=== PATIENT | male | born 2005 | race African-American/Black ===

== ENCOUNTER 2024-11-20 15:50 | Emergency (ER) | payer SELFPAY ==
--- OUTSIDE RECORDS SUMMARY | 2024-11-20 15:53 | XMS REPORT | Continuity of Care Document ---
Author Name Unknown Address [address] [place] [address] [facility] thconnect Address [address] [place] [address] Care Team Providers Care Scaffolding Helper Name Role Phone Ray Beltran Primary Care Physician [phone], Ad[facility] Attending Clinician Unavailable Stewart Beltranh Attending Clinician [phone] STEWART BELTRANH Attending Clinician Unavailable Doctor Unassigned, [place] Attending Clinician U navailable Provider, [facility] Attending Clinician Unavailable Only, Ang Db Test Attending Clinician Unavailabl e Romulo RIG SITE ENGINEERTrice Dodd Attending Clinician TRICE SEBASTIAN Attending Clinician Unavailabl e Nurse, Adc Pob Immunization Attending Clinician Unavailable Mynor Paige DO Attending Clinician [phone] MYNOR PAIGE Attending Clinician Unavail able Lesly Mcgee RN Attending Clinician Unavaila ble UNKNOWN, ATTENDING Attending Clinician Unavailab le Unknown, Attending Attending Clinician Unavailab li Still RN, Cecilia Attending Clinician Unavailable PAN ESCAMILLA Attending Clinician Unavailable Payers Payer Name Policy Type Policy Number Effective Date Expirati on Date Source [facility] P [id number] Allergies, Adverse Reactions, Alerts Allergy Name Allergy Type Status Severity Reaction(s) Onset Date Inactive Date Treating Clinician Comments Source NO KNOWN ALLERGIE S Drug Class Active [facility] Social History Social Habit Start Date Stop Date Quantity Comments Source Sexual orientation U [facility] Exposure to SARS-CoV-2 (event) 2022-04-26 00:00:00 2022-05-06 14:51:00 Not sure [facility] Sex Assigned At 2005 00:00:00 2005 00:00:00 [facility] Smoking Status Start Date Stop Date Source Tobacco smoking consumption unknown [facility] Medications Ordered Medication Name Filled Medication Name Start Date Stop Date Current Medication? Ordering Clinician Indication Dosage Frequency Signature (SIG) Comments Components Source No known medications 07-13 10:40: 13 No No known medication s [facility] Immunizations Ordered Immunization Name Filled Immunization Name Date Status Comments Source SARS-COV-2 COVID-19 PFIZER VACCINE 2021-10-16 00:00:00 Completed [facility] SARS-COV-2 COVID-19 PFIZER VACCINE 2021-10-16 00:00:00 Completed [facility] SARS-COV-2 COVID-19 PFIZER VACCINE 2021-10-16 00:00:00 Completed [facility] SARS-COV-2 COVID-19 PFIZER VACCINE 2021-10-16 00:00:00 Completed [facility] SARS-COV-2 COVID-19 PFIZER VACCINE Unknown Completed [facility] SARS-COV-2 COVID-19 PFIZER VACCINE Unknown Completed [facility] Procedures Procedure Date / Time Performed Performing Clinicia n Source URINALYSIS 2023-12-10 15:30:00 [facility] PHYSICIAN ORDERS 2023-12-10 06:01:00 Doctor Unas signed, Big [place] [facility] CONSENT/REFUSAL FOR DIAGNOSIS AND TREATMENT 2022-05-06 19:52:07 Doctor Unassigned, [place] [facility] SARS-COV-2 COVID-19 VACCINE,0.3ML,IM (PFIZER) 2021-10-16 16:44:19 Doctor Unassigned, [place] [facility] Encounters Start Date/Time End Date/Time Encounter Type Admission Type Attending [facility] Care Facility Care Department Encounter ID Source 2022-07-24 09:25:12 Outpatient [facility] [id number] [facility] 2023-12-10 10:45:00 2023-12-10 12:12:[address] Clerk Visit 2, [facility] 1.84.114 350.1.13.10 4.2.7.2.686 [id number] [facility] 2023-12-10 10:45:00 2023-12-10 10:45:00 [id number] 2023-12-10 00:00:00 2023-12-10 00:00:00 Orders Only Doctor Unassigned, Big Arm [facility] [id number] 350.1.13.10 4.2.7.2.686 [id number] [facility] 2022-05-07 00:00:00 2022-05-07 00:00:00 Letter (Out) Provider, Madi P[facility]rez [facility] 1.84.114 350.1.13.10 4.2.7.2.686 [id number] [facility] 2022-05-06 15:00:00 2022-05-06 15:15:00 Laboratory Only Only, Ang Db Test Romulo, [facility] 1.84.114 350.1.13.10 4.2.7.2.686 [id number] [facility] 2022-05-06 15:00:00 2022-05-06 15:00:00 Outpatient R ROMULO [facility] [id number] [facility] 2022-05-06 00:00:00 2022-05-06 00:00:00 Orders Only Doctor Unassigned, Big Arm [facility] [id number] 350.1.13.10 4.2.7.2.686 [id number] [facility] 2021-10-16 10:30:00 2021-10-16 10:30:00 Imm/Inj Visit Nurse, Abdirizak Faria Immunizatio Mynor Mcdermott [facility] 1..840.114 350.1.13.10 4.2.7.2.686 [id number] [facility] 2021-10-16 10:30:00 2021-10-16 10:29:01 Outpatient R MYNOR PAIGE [facility] [id number] [facility] 2021-07-14 00:00:00 2021-07-14 00:00:00 Telephone Lesly Mcgee [facility] [id number] 350.1.13.10 4.2.7.2.686 [id number] [facility] 2021-07-13 11:00:00 2021-07-13 11:00:00 Outpatient R UNKNOWN, ATTENDING [facility] [id number] [facility] 2021-07-13 10:37:35 2021-07-13 10:52:35 Laboratory Only Only, Ang Db Test Unknown, Attending [facility] MananJimboTracey riley [facility] 1..840.114 350.1.13.10 4.2.7.2.686 [id number] [facility] 2021-07-05 00:00:00 2021-07-05 00:00:00 Telephone Cecilia Still [facility] 1.840.114 350.1.13.10 4.2.7.2.686 [id number] [facility] 2021-07-04 19:25:00 2021-07-04 19:25:00 Outpatient R UNKNOWN, ATTENDING [facility] [id number] [facility] 2021-07-04 18:57:47 2021-07-04 19:02:22 Laboratory Only Only, Ang Db Test Unknown, Attending [facility] Vilma Hinkle?Tracey riley [facility] 1.840.114 350.1.13.10 4.2.7.2.686 [id number] [facility] 2021-07-04 00:00:00 2021-07-04 00:00:00 Letter (Out) Doctor Unassigned, Big Arm [facility] 1..840.114 350.1.13.10 4.2.7.2.686 [id number] [facility] 2021-02-01 08:20:00 2021-02-01 08:20:00 Outpatient PAN GUPTA [facility] [id number] [facility] 2020-02-22 14:15:00 2020-02-22 14:15:00 Outpatient RAY ANTON [facility] [id number] [place] [facility]
[2024-11-20] MEDS ORDERED: HYDROCODONE/APAP 5/325 MG TAB ONE (16:55)
[2024-11-20] MEDS ORDERED: dexAMETHasone 10 MG/ML VIAL ONE (16:55)
[2024-11-20] MEDS ORDERED: KETOROLAC 30 MG/ML INJ ONE (16:55)
--- NOTE | 2024-11-20 17:18 | ER ---
Nurse's Notes [facility] Name: Ameya Campa Age: 19 yrs Sex: Male : 2005 Arrival Date: 11/20/2024 Time: 15:50 Bed 12 Private MD: Diagnosis: Strain of muscle and tendon of back wall of thorax Presentation: 11/20 16:27 Chief complaint: Patient states: works at [employer] and was lifting some bags, ko1 felt something pop in my back and it hurts now. Coronavirus screen: At this time, the client does not indicate any symptoms associated with coronavirus-19. Ebola Screen: No symptoms or risks identified at this time. Initial Sepsis Screen: Does the patient meet any 2 criteria? No. Patient's initial sepsis screen is negative. Does the patient have a suspected source of infection? No. Patient's initial sepsis screen is negative. Risk Assessment: Do you want to hurt yourself or someone else? Patient reports no desire to harm self or others. Onset of symptoms was November 20, 2024. 16:27 Method Of Arrival: Ambulatory ko1 16:27 Acuity: SITA 4 ko1 Triage Assessment: 16:31 General: Appears in no apparent distress. Behavior is calm, cooperative, appropriate ko1 for age. Pain: Complains of pain in left low back and left mid back. Musculoskeletal: Circulation, motion, and sensation intact. Range of motion: intact in all extremities. Historical: - Allergies: 16:31 No Known Allergies; ko1 - Home Meds: 16:31 None [Active]; ko1 - PMHx: 16:31 None; ko1 - PSHx: 16:31 None; ko1 - Immunization history:: Adult Immunizations up to date. - Infectious Disease History:: Denies. - Social history:: Smoking status: Patient denies any tobacco usage or history of. Screenin:05 [facility] ED Fall Risk Assessment (Adult) History of falling in the last 3 months, hb including since admission No falls in past 3 months (0 pts) Confusion or Disorientation No (0 pts) Intoxicated or Sedated No (0 pts) Impaired Gait No (0 pts) Mobility Assist Device Used No (0 pt) Altered Elimination No (0 pt) Score/Fall Risk Level 0 - 2 = Low Risk Oriented to surroundings, Maintained a safe environment, Educated pt \T\ family on fall prevention, incl call for assistance when getting out of bed. Abuse screen: Denies threats or abuse. Denies injuries from another. Nutritional screening: No deficits noted. Tuberculosis screening: No symptoms or risk factors identified. Assessment: 17:05 General: Appears in no apparent distress. Behavior is calm, cooperative. Pain: Pain hb currently is 8 out of 10 on a pain scale. Neuro: Level of Consciousness is awake, alert, obeys commands, Oriented to person, place, time, situation. Cardiovascular: Patient's skin is warm and dry. Respiratory: Respiratory effort is even, unlabored, Respiratory pattern is regular, symmetrical. GI: No signs and/or symptoms were reported involving the gastrointestinal system. : No signs and/or symptoms were reported regarding the genitourinary system. EENT: No signs and/or symptoms were reported regarding the EENT system. Derm: Skin is pink, warm \T\ dry. Musculoskeletal: Reports back pain 8/10. 17:29 Reassessment: Patient appears in no apparent distress at this time. Patient and/or hb family updated on plan of care and expected duration. Pain level reassessed. Patient is alert, oriented x 3, equal unlabored respirations, skin warm/dry/pink. Vital Signs: 16:27 BP 110 / 80; Pulse 82; Resp 16; Temp 97; Pulse Ox 100% ; ko1 ED Course: 15:52 Patient arrived in ED. mr 15:54 Dewey Nena, [facility] kb 15:54 Hieu Logan MD is Attending Physician. kb 16:31 Triage completed. ko1 16:31 Arm band placed on right wrist. Patient placed in an exam room, on a stretcher, Patient ko1 notified of wait time. 16:48 Bri Tovar, RN is Primary Nurse. hb 17:05 Patient has correct armband on for positive identification. Provided Education on: hb medications, use of call light . 17:05 No provider procedures requiring assistance completed. Patient did not have IV access hb during this emergency room visit. Administered Medications: 17:03 Drug: Dexamethasone IM 10 mg IM once Route: IM; Site: right deltoid; hb 17:25 Follow up: Response: No adverse reaction hb 17:04 Drug: Ketorolac IM 30 mg IM once Route: IM; Site: left deltoid; hb 17:25 Follow up: Response: No adverse reaction hb 17:04 Drug: HYDROcodone-acetaminophen PO 5 mg-325 mg 1 tabs PO once Route: PO; hb 17:25 Follow up: Response: No adverse reaction hb Medication: 17:05 VIS not applicable for this client. hb Outcome: 17:17 Discharge ordered by . favian 17:29 Discharged to home ambulatory, with family, hb 17:29 Condition: stable 17:29 Discharge instructions given to patient, family, Instructed on discharge instructions, follow up and referral plans. medication usage, Demonstrated understanding of instructions, follow-up care, medications, Prescriptions given X 2, 17:29 Patient left the ED. hb Signatures: Nena Palomo, THUAN-C CREDENTIALING SPECIALIST-Sravanthi Tristan [facility] mr Bri Tovar, RN RN hb Daisha Wood, MARISELA RN ko1
--- NOTE | 2024-11-20 17:18 | EDPHYS ---
Physician Documentation [facility] Name: Ameya Campa Age: 19 yrs Sex: Male : 2005 Arrival Date: 11/20/2024 Time: 15:50 Bed 12 Private MD: ED Physician Hieu Logan HPI: 11/20 17:15 This 19 yrs old Black Male presents to ER via Ambulatory with complaints of Back Pain. kb 17:15 Pt is a 19 year old male who presents for pain to left side of middle back that started kb after lifting a heavy bag of feed at work. Pain aggravated by movement and palpation. . Historical: - Allergies: 16:31 No Known Allergies; ko1 - Home Meds: 16:31 None [Active]; ko1 - PMHx: 16:31 None; ko1 - PSHx: 16:31 None; ko1 - Immunization history:: Adult Immunizations up to date. - Infectious Disease History:: Denies. - Social history:: Smoking status: Patient denies any tobacco usage or history of. ROS: 16:59 Constitutional: As per HPI kb Exam: 16:59 Constitutional: This is a well developed, well nourished patient who is awake, alert, kb and in no acute distress. Head/Face: Normocephalic, atraumatic. ENT: Moist Mucous membranes Cardiovascular: Regular rate Respiratory: Respirations even and unlabored. No increased work of breathing. Talking in full sentences Skin: Warm, dry with normal turgor. Normal color. MS/ Extremity: Pulses equal, no cyanosis. Neurovascular intact. Full, normal range of motion. Neuro: Awake and alert, GCS 15, oriented to person, place, time, and situation. 16:59 Back: pain, that is moderate, of the left subscapular area and left mid back, ROM is painful, normal spinal alignment noted, no vertebral tenderness, Vital Signs: 16:27 BP 110 / 80; Pulse 82; Resp 16; Temp 97; Pulse Ox 100% ; ko1 MDM: 15:54 Medical Screening Exam initiated kb 17:02 Differential diagnosis: muscle strain, fracture. Data reviewed: vital signs, nurses kb notes. Test considered but Not performed: X-ray: xray considered but pt does not have any bony tenderness. Counseling: I had a detailed discussion with the patient and/or guardian regarding the historical points, exam findings, and any diagnostic results supporting the discharge/admit diagnosis, the need for outpatient follow up, a family practitioner, to return to the emergency department if symptoms worsen or persist or if there are any questions or concerns that arise at home. Administered Medications: 17:03 Drug: Dexamethasone IM 10 mg IM once Route: IM; Site: right deltoid; hb 17:25 Follow up: Response: No adverse reaction hb 17:04 Drug: Ketorolac IM 30 mg IM once Route: IM; Site: left deltoid; hb 17:25 Follow up: Response: No adverse reaction hb 17:04 Drug: HYDROcodone-acetaminophen PO 5 mg-325 mg 1 tabs PO once Route: PO; hb 17:25 Follow up: Response: No adverse reaction hb Disposition: 18:06 Co-signature as Attending Physician, Hieu Logan MD I reviewed the patient's care rt provided by the Advanced Practice Provider and agree with the diagnosis and treatment plan. Disposition Summary: 11/20/24 17:17 Discharge Ordered Notes: Location: Home kb Condition: Stable kb Diagnosis - Strain of muscle and tendon of back wall of thorax kb Followup: kb - With: Emergency Department - When: As needed - Reason: Worsening of condition Followup: kb - With: Private Physician - When: 2 - 3 days - Reason: Recheck today's complaints, Continuance of care, Re-evaluation by your physician Discharge Instructions: - Discharge Summary Sheet kb - Muscle Strain, [id number] kb Forms: - Medication Reconciliation Form kb - Antibiotic Education kb - Prescription Opioid Use kb - Patient Portal Instructions kb - Leadership Thank You Letter kb - Work release form Prescriptions: - Diclofenac Sodium 75 mg Oral Tablet Sustained Release - take 1 tablet ORAL route 2 times per day; 30 tablet; Refills: 0, Product kb Selection Permitted - orphenadrine citrate 100 mg Oral Tablet Sustained Release - take 1 tablet ORAL route 2 times per day As needed; 20 tablet; Refills: 0, kb Product Selection Permitted Signatures: Nena Palomo FNP-C FNP-Ckb Baxter, Heather RN RN hb Daisha Wood RN RN ko1 Hieu Logan MD MD rt
[2024-11-20 20:11] VITALS: BP 110/80; TEMP 97; O2SAT 100
== END 2024-11-20 17:29 | disposition home or self-care (01) ==
LOC: ER 15:50
DX: S29.012A Strain of muscle and tendon of back wall of thorax, initial encounter (principal)
CPT/HCPCS: 96372; 99284; J1100